=== PATIENT | male | born 1990 | race Caucasian/White ===

== ENCOUNTER 2017-12-01 07:15 | Day surgery (SDC) | payer OTHER ==
[~2017-12-01] VITALS: Ht 167.6 cm; Wt 80.2 kg
[~2017-12-01 07:15] MED LIST: Antibiotic PO; HYDR-3652 PO
[2017-12-01] MEDS ORDERED: LACTATED RINGERS 1,000 ML IV SCH (07:26)
[2017-12-01 07:37] VITALS: BP 120/82
[2017-12-01] MEDS ORDERED: BUPIVACAINE/PF 0.5% ONE (08:18)
[2017-12-01] MEDS ORDERED: MIDAZOLAM 1 MG/ML, 2ML ONE (10:05)
[2017-12-01] MEDS ORDERED: FENTANYL PF 250 MCG/5ML ONE (10:05)
[2017-12-01] MEDS ORDERED: LABETALOL 5MG/ML, 20ML ONE (10:15)
[2017-12-01] MEDS ORDERED: PROPOFOL 10 MG/ML, 50ML ONE (10:15)
[2017-12-01] MEDS ORDERED: DEXAMETHASONE 4 MG/ML, 1ML ONE (10:23)
[2017-12-01] MEDS ORDERED: CEFAZOLIN 1,000 MG ONE ×2 (10:23)
[2017-12-01] MEDS ORDERED: ONDANSETRON 2MG/ML, 2ML ONE (10:23)
[2017-12-01] MEDS ORDERED: BUPIVACAINE/PF 0.5% INFIL ONE (10:42)
[2017-12-01] MEDS ORDERED: PROMETHAZINE 12.5 MG SUPP PR PRN (11:00)
[2017-12-01] MEDS ORDERED: ONDANSETRON 2MG/ML, 2ML IV PRN (11:00)
[2017-12-01] MEDS ORDERED: OXYcodone 5 MG/5 ML ORAL.SOL UDC PO PRN (11:00)
[2017-12-01] MEDS ORDERED: ACETAMINOPHEN 325 MG TABLET PO PRN (11:00)
[2017-12-01] MEDS ORDERED: DIPHENHYDRAMINE 50 MG/ML, 1ML IVPush PRN (11:00)
[2017-12-01] MEDS ORDERED: PROMETHAZINE 25 MG/ML, 1ML IV PRN (11:00)
[2017-12-01] MEDS ORDERED: ONDANSETRON ODT 8 MG PO PRN (11:00)
[2017-12-01] MEDS ORDERED: MORPHINE SULFATE 4 MG/ML, 1ML IVPush PRN (11:00)
[2017-12-01] MEDS ORDERED: EPHEDRINE 50 MG/ML, 1ML IM PRN (11:00)
[2017-12-01] MEDS ORDERED: PROMETHAZINE 25 MG SUPP PR PRN (11:00)
[2017-12-01] MEDS ORDERED: EPHEDRINE 50 MG/ML, 1ML IVPush PRN (11:00)
[2017-12-01] MEDS ORDERED: MIDAZOLAM 1 MG/ML, 2ML IV PRN (11:00)
[2017-12-01] MEDS ORDERED: LABETALOL 5MG/ML, 20ML IV PRN (11:00)
[2017-12-01] MEDS ORDERED: MEPERIDINE/PF 25MG/0.5ML IVPush PRN (11:00)
[2017-12-01] MEDS ORDERED: OXYcodone 5 MG/5 ML ORAL.SOL UDC ONE (12:20)
[2017-12-01] MEDS ORDERED: FENTANYL PF 100 MCG/2ML ONE (12:32)
[2017-12-01] MEDS: FENTANYL PF 100 MCG/2ML IV PRN ×2 (12:34→12:44)
== END 2017-12-01 14:15 | disposition home or self-care (01) ==
LOC: OUT 07:15 → EDSTATUS 09:30 → OUT 14:15
PROVIDERS: ATTEND Orthopaedic Surgery
DX: S52.572A Other intraarticular fracture of lower end of left radius, initial encounter for closed fracture (principal); X58.XXXA Exposure to other specified factors, initial encounter; Y93.89 Activity, other specified; Y92.89 Other specified places as the place of occurrence of the external cause; Y99.8 Other external cause status; Z87.891 Personal history of nicotine dependence; Z72.89 Other problems related to lifestyle
CPT/HCPCS: 25609; 73100; 76001; C1713; J0690; J1100; J2250; J2405; J2704; J3010; J3490; J7120